=== PATIENT | female | born 1985 | race Caucasian/White ===

== ENCOUNTER 2018-02-12 05:57 | Emergency (ER) | payer OTHER ==
[2018-02-12 06:13] VITALS: TEMP 97.5
--- NOTE | 2018-02-12 06:36 | ED.PDOC ---
History of Present Illness - General Source: patient, police Exam Limitations: clinical condition - History of Present Illness Initial Comments: THE PATIENT IS A POOR HISTORIAN BUT EVIDENTLY SHE IS BROUGHT HERE BY THE EMS. SHE WAS FOUND BY A GOVERNMENT INSTRUCTOR OUTSIDE SCREAMING IN THE RAIN. SHE VOICES THAT SHE IS HAVING VAGINAL BLEEDING AND THAT IS HAVING A MISCARRIAGE. DENIES ANY HISTORY OF MENTAL DISORDER. Timing/Duration: 1 hour Improving Factors: nothing Worsening Factors: nothing <Yang Arizmendi - Last Filed: 02/12/18 06:34> <Carlitos Roth - Last Filed: 02/12/18 08:33> - General Chief Complaint: Behavioral / Psych Stated Complaint: altered mental status Time Seen by Provider: 02/12/18 06:33 - History of Present Illness Allergies/Adverse Reactions: Allergies NO KNOWN ALLERGY Allergy (Verified 09/23/14 18:06) Home Medications: Ambulatory Orders NK 10/21/15 Review of Systems - Review of Systems Constitutional: States: no symptoms reported EENTM: States: no symptoms reported Respiratory: States: no symptoms reported Cardiology: States: no symptoms reported Gastrointestinal/Abdominal: States: no symptoms reported Genitourinary: States: no symptoms reported Musculoskeletal: States: no symptoms reported Skin: States: no symptoms reported Neurological: States: no symptoms reported Endocrine: States: no symptoms reported <Yang Arizmendi - Last Filed: 02/12/18 06:34> Past Medical History (General) - Patient Medical History Hx Seizures: No Hx Stroke: No Hx Asthma: No Hx Congestive Heart Failure: No Hx Hypertension: No Hx Diabetes: No Hx MRSA: No - Vaccination History Hx Tetanus, Diphtheria Vaccination: No Hx Influenza Vaccination: Yes Hx Pneumococcal Vaccination: No - Social History Hx Tobacco Use: Yes Hx Alcohol Use: No Hx Substance Use: No Hx Substance Use Treatment: No - Triage Comment ED Triage Comment: EMS states patient was standing out in the rain screaming when police were called. Patient is brought in per police wanting patient evaluated due to her odd behavior prior to taking her to assisted. <Yang Arizmendi - Last Filed: 02/12/18 06:34> Family Medical History - Family History Mother Family History: No Known Living Status: Still Living <Yang Arizmendi - Last Filed: 02/12/18 06:34> Physical Exam - Physical Exam General Appearance: Agitated, Anxious, Well Developed, Well Groomed, Well Hydrated, Well Nourished Eye Exam: bilateral normal Ears, Nose, Throat: hearing grossly normal, normal ENT inspection Neck: non-tender, full range of motion, supple, normal inspection Respiratory: chest non-tender, lungs clear, normal breath sounds, no respiratory distress, no accessory muscle use Cardiovascular/Chest: normal peripheral pulses, regular rate, rhythm, no edema, no gallop, no JVD Gastrointestinal/Abdominal: normal bowel sounds, non tender, soft, no organomegaly, no pulsatile mass Rectal Exam: deferred Back Exam: normal inspection Extremity: normal range of motion Neurologic: no motor/sensory deficits, alert <Yang Arizmendi - Last Filed: 02/12/18 06:34> Progress - Progress Progress: 02/12/18 08:30 Labs unremarkable. No alcohol on blood test. Likely intoxication to a ux ui designer drug or she is coming down from a standard street drug. She refused to give urine. vital signs were stable and wnl. She was conversational with me showing improvement over when she arrived. She does not appear to be unstable or in danger of overdose at this time. Discharged to the custody of police, medically cleared. <Carlitos Roth - Last Filed: 02/12/18 08:33> Departure <Yang Arizmendi - Last Filed: 02/12/18 06:34> - Departure Diet: resume usual diet Activity: walking as tolerated <Carlitos Roth - Last Filed: 02/12/18 08:33> - Departure Clinical Impression: Acute psychosis Disposition: [facility] Condition: Good Departure Forms: ED Discharge - Pt. Copy, Patient Portal Self Enrollment Instructions: DI for Psychosis Referrals: Emile Stacy MD [Primary Care Provider] - 1-2 Weeks Home Medications: Ambulatory Orders NK 10/21/15 Additional Instructions: Do not use illegal drugs. If you use tobacco, stop.
[2018-02-12 08:39] VITALS: BP 127/79; O2SAT 100
== END 2018-02-12 08:39 ==
LOC: ER 05:57
DX: F23 Brief psychotic disorder (principal); Z87.891 Personal history of nicotine dependence